=== PATIENT | female | born 1955 | race Two or more races ===

== ENCOUNTER 2023-04-24 01:30 | Emergency (ER) | payer MEDICAID ==
[~2023-04-24] VITALS: Ht 180.3 cm; Wt 113.4 kg
[~2023-04-24 01:30] MED LIST: PANT40TA2 PO
[2023-04-24] MEDS ORDERED: PANTOPRAZOLE 40 MG VIAL IV ONE (02:00)
[2023-04-24] MEDS ORDERED: PANTOPRAZOLE 40 MG VIAL ONE (02:10)
[2023-04-24 02:34] LABS: BASOPHILS % (AUTO) 0.5 % (0.0-2.0); EOSINOPHILS # (AUTO) 0.1 K/uL (0.0-0.7); EOSINOPHILS % (AUTO) 1.2 % (0.0-6.0); HEMATOCRIT 36 % (33-45); HEMOGLOBIN 12.1 g/dL (11.5-14.8); LYMPHOCYTES # (AUTO) 1.4 K/uL (0.8-4.8); LYMPHOCYTES % (AUTO) 32.9 % (20.0-44.0); MEAN CORPUSCULAR HEMOGLOBIN 38 PG (26.0-33.0); MEAN CORPUSCULAR HGB CONC 34 g/dl (31.0-36.0); MEAN CORPUSCULAR VOLUME 114 fL (82-100); MONOCYTES # (AUTO) 0.4 K/uL (0.1-1.30); MONOCYTES % (AUTO) 9.6 % (2.0-12.0); NEUTROPHILS # (AUTO) 2.4 K/uL (1.8-8.9); NEUTROPHILS % (AUTO) 55.8 % (43.0-81.0); PLATELET COUNT (AUTO) 95 K/uL (150-450); RED BLOOD CELL COUNT(AUTO) 3.17 MIL/uL (4.0-5.2); RED CELL DISTRIBUTION WIDTH 18.8 % (11.5-15.0); WHITE BLOOD COUNT (AUTO) 4.4 K/uL (4.3-11.0)
[2023-04-24] MEDS ORDERED: CT SWABBABLE VALVE TRANS SET 1 EA INFUS.SET MC ONE (02:41)
[2023-04-24] MEDS ORDERED: IV NS 0.9% 250 ML IV ONE (02:41)
[2023-04-24] MEDS ORDERED: IOHEXOL-350 100 ML VIAL IV ONE (02:41)
[2023-04-24 02:47] LABS: INR 1.02 (0.91-1.10); PROTHROMBIN TIME 10.8 SECS (9.2-11.1)
[2023-04-24 02:49] LABS: ALBUMIN 3.5 g/dL (3.4-5.0); BILIRUBIN,DIRECT 0.1 mg/dL (0.0-0.2); BILIRUBIN,TOTAL 0.5 mg/dL (0.2-1.0); CALCIUM, SERUM 10.9 mg/dL (8.5-10.1); CREATININE 0.7 mg/dL (0.6-1.3); POTASSIUM 3.7 mmol/L (3.5-5.1); TOTAL PROTEIN, SERUM 8.1 g/dL (6.4-8.2)
[2023-04-24 02:52] LABS: LACTIC ACID 1.5 mmol/L (0.4-2.0)
[2023-04-24 04:04] VITALS: BP 126/70; TEMP 98.4; O2SAT 100
[2023-04-24 04:05] LABS: BASOPHILS % (MANUAL) 1 % (0.0-2.0); EOSINOPHILS % (MANUAL) 2 % (0-4); LYMPHOCYTES % (MANUAL) 35 % (16-48); MONOCYTES % (MANUAL) 11 % (0-11.0); NEUTROPHILS % (MANUAL) 51 (42-76); PLATELET ESTIMATE DECREASED
[2023-04-24 04:06] LABS: ANISOCYTOSIS 1+
== END 2023-04-24 04:04 | disposition home or self-care (01) ==
LOC: ER 01:32
DX: J95.01 Hemorrhage from tracheostomy stoma (principal); E11.9 Type 2 diabetes mellitus without complications
CPT/HCPCS: 99285; 74174; 96374; 85025; 80048; 87040 ×2; 83605; 83690; 80076; 36415; 85730; 86850; 85007; J7030; J7050; C9113; A4223; Q9967

== ENCOUNTER 2023-07-12 22:59 | Emergency (ER) | payer MEDICAID ==
[~2023-07-12] VITALS: Ht 175.3 cm; Wt 62.6 kg
[2023-07-12 23:10] VITALS: BP 134/70; TEMP 97.8; O2SAT 100
== END 2023-07-12 23:46 | disposition home or self-care (01) ==
LOC: ER 23:23
DX: Z71.1 Person with feared health complaint in whom no diagnosis is made (principal); Z43.3 Encounter for attention to colostomy; E11.9 Type 2 diabetes mellitus without complications